=== PATIENT | male | born 1985 | race Caucasian/White ===

== ENCOUNTER 2017-12-19 12:23 | Day surgery (SDC) | payer BC ==
[~2017-12-19 12:23] MED LIST: Buffered Lidocaine 0.9% SYRIN* 5 ML/SYR SYRINGE INTRADERM ONE; Famotidine IV* 10 MG/ML 2 ML (20 mg) IV ONE
[2017-12-19] MEDS ORDERED: Famotidine IV* 10 MG/ML 2 ML (20 mg) ONE (12:26)
[2017-12-19] MEDS ORDERED: ceFAZolin 2 GM PREMIX (*) 2 GM/50 ML BAG IVPB ONE ×2 (12:26→13:13)
[2017-12-19] MEDS ORDERED: fentaNYL* 50 MCG/ML 2 ML VIAL (100 MCG VIAL) ONE ×2 (16:03→17:37)
[2017-12-19] MEDS ORDERED: Midazolam* 1 MG/ML 2 ML VIAL (2 MG) ONE (16:03)
[2017-12-19] MEDS ORDERED: Bupivacaine 0.5% PF 10 ML VIAL INJ ONE (16:32)
[2017-12-19] MEDS ORDERED: EPINEPHRINE 1 MG/ML 1 ML VIAL ONE (16:32)
[2017-12-19] MEDS ORDERED: Propofol* 10 MG/ML 20 ML BTL IV PUSH ONE (17:05)
[2017-12-19] MEDS ORDERED: Dexamethasone IV* 4 MG/ML 1 ML (4 MG) ONE (17:05)
[2017-12-19] MEDS ORDERED: Ketorolac INJ* 30 MG/ML 1 ML VIAL ONE (17:05)
[2017-12-19] MEDS ORDERED: Naloxone* 0.4 MG/ML 1 ML VIAL IV PRN (17:11)
[2017-12-19] MEDS ORDERED: Nalbuphine* 10 MG/ML 1 ML VIAL IV PRN (17:11)
[2017-12-19] MEDS ORDERED: DiMENhydriNATE IV* 50 MG/ML VIAL IV PUSH PRN (17:11)
[2017-12-19] MEDS ORDERED: Acetaminophen TAB* 325 MG PO PRN (17:11)
[2017-12-19] MEDS ORDERED: Ondansetron ODT TAB* 4 MG PO PRN (17:11)
[2017-12-19] MEDS ORDERED: Ondansetron INJ* 2 MG/ML VIAL IV PRN (17:11)
[2017-12-19] MEDS ORDERED: HYDROmorphone INJ* 0.5 MG/0.5 ML SYRINGE IV PRN (17:11)
[2017-12-19] MEDS ORDERED: Levalbuterol 0.63MG/3ML NEB* UNIT OF USE INH PRN (17:11)
[2017-12-19] MEDS ORDERED: fentaNYL* 50 MCG/ML 2 ML VIAL (100 MCG VIAL) IV PRN (17:11)
[2017-12-19] MEDS ORDERED: PROCHLORPERAZINE INJ 5 MG/ML 2 ML VIAL IV PRN (17:11)
[2017-12-19] MEDS ORDERED: HYDROcodone/ACETAMIN 5-325 MG* 1 TAB PO PRN ×2 (17:11)
[2017-12-19] MEDS ORDERED: HYDROcodone/ACETAMIN 5-325 MG* 1 TAB ONE (18:34)
[2017-12-19 18:53] VITALS: BP 119/86
--- NOTE | 2017-12-21 22:13 | OP ---
DATE OF OPERATION: 12/19/17 - [facility] DATE OF : 83 SURGEON: Konrad Enriquez MD CYBER LEGAL ADVISOR: ANGELICA Solomon. A physician family readiness support assistant was required for the length of the procedure with help with setup, knee manipulation, instrumentation and closure. ANESTHESIOLOGIST: tSewart Guerrero MD ANESTHESIA: General anesthesia, local anesthesia with 20 cc of Marcaine 0.5% without epinephrine. PRE-OP DIAGNOSIS: Right knee medial meniscus tear. POST-OP DIAGNOSES: 1. Right knee medial meniscus tear. 2. Large right knee medial plica. OPERATIVE PROCEDURE: 1. Right knee arthroscopic partial medial meniscectomy. 2. Right knee arthroscopic removal of medial plica. ANTIBIOTICS: Ancef 2 g IV. IV FLUIDS: 1000 cc crystalloid. TOURNIQUET TIME: 22 minutes at 300 mmHg. BFME-DX-JEIE TIME: 21 minutes. ARTHROSCOPIC FLUID UTILIZED: 1.8 L total which is an equivalent of 0.6 bags, each containing 3 L. SPECIMEN: None. IMPLANTS: None. COMPLICATIONS: None. ESTIMATED BLOOD LOSS: Zero cc. 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 The patient developed mechanical symptoms with sudden catching. He had almost fallen multiple times because of his catching and locking of the knee both at work and at home. 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 An MRI demonstrated a complex tear of the medial meniscus. The patient responded insufficiently to non-operative management and opted for surgery. We discussed risks and potential complications of surgery. Given the patient's acute injury, his mechanical symptoms and the effects on his safety and day-to-day function of the meniscus tear, we opted for surgery. DESCRIPTION OF THE PROCEDURE: Preoperatively, the patient signed a written consent. Operative extremity was marked in preoperative holding. The patient was taken back to the operating room and placed supine on operating room table, he was sedated and intubated. Tourniquet was placed around the right proximal thigh. Distal thigh was placed in a circumferential thigh mahoney. The right lower extremity was prepped and draped. Surgical time-out was performed. Esmarch was applied and the tourniquet was elevated to 300 mmHg. Anterolateral knee arthroscopy portal was established using a standard technique. I started my diagnostic arthroscopy. The patient had no patellofemoral compartment pathology, no articular cartilage damage. However, there was an enlarged medial plica visible. A drop down medial compartment. I noted some irregularities of the posterior horn of the medial meniscus, but I could not yet visualize it well. I established the anteromedial knee arthroscopy portal under direct visualization. I probed the posterior horn of the medial meniscus and there was clearly a significant amount of complex tearing there. I did some minimal shaving with an arthroscopic shaver and then this revealed a parrot beak tear component to the tear. I debrided the meniscus tear back to a stable rim with arthroscopic biters and an arthroscopic shaver working from the anteromedial and then the anterolateral portal. There was a horizontal, oblique component to the tear with a smaller inferior leaflet. I debrided that back to stability, but tried not to remove the entire leaflet. The more vertical, longitudinal, radial oblique tears were removed along with the parrot beak tear. There was a still a rim of good meniscus present about the posterior horn and posterior body. I noted in the intercondylar notch that the ACL and PCL were intact. I removed some anterior synovitis with an arthroscopic shaver. The patient had no lateral compartment pathology. No meniscus tear. No articular cartilage injuries. I then returned to the patellofemoral compartment and debrided the large medial plica with an arthroscopic shaver. Instruments and fluid were removed from the knee. Closed the skin incisions with [id number] in 12 stitches using nylon 3-0 suture. Local anesthesia was used, 20 cc of Marcaine 0.5% without epinephrine. Xeroform, 4x4's, ABD, Tae bandage from foot to proximal thigh. Cooling unit on the knee. The patient was awakened and transferred to the PACU. DISPOSITION: The patient was given wound care instructions, physical therapy to start immediately, aspirin 325 mg p.o. b.i.d. x2 weeks for DVT prophylaxis and Percocet as needed for pain. The patient will be seen in my office 10 to 14 days postoperatively and then again 6 weeks postoperatively. [id number] #: [id number] MTDD
== END 2017-12-19 19:17 | disposition home or self-care (01) ==
LOC: OR 12:23
PROVIDERS: ATTEND Orthopaedic Surgery
DX: S83.241A Other tear of medial meniscus, current injury, right knee, initial encounter (principal); M67.51 Plica syndrome, right knee; X50.0XXA Overexertion from strenuous movement or load, initial encounter; Y92.89 Other specified places as the place of occurrence of the external cause; Z72.0 Tobacco use
CPT/HCPCS: J0690; J1100; J1885; J2250; J2704; J3010